=== PATIENT | female | born 1990 | race Caucasian/White ===

== ENCOUNTER 2016-08-27 12:28 | Emergency (ER) | payer OTHER ==
[~2016-08-27] VITALS: Ht 157.5 cm; Wt 63.5 kg
[2016-08-27 12:29] VITALS: Ht 157.5 cm; Wt 63.5 kg
[2016-08-27] MEDS ORDERED: IBUP-1542 PO (13:12)
--- NOTE | 2016-08-27 14:42 | ERD ---
ER Documentation Chief Complaint Date/Time DATE: 08/27/16 TIME: 14:38 Chief Complaint Complains of left ear pain x 3 days HPI 25-year-old female complaining of a painful lump behind her left ear 3 days. Pain is constant, pain shoots up and down from the lump. Denies fever or chills. Denies cough or rhinorrhea. Denies headache. ROS All systems reviewed and are negative except as per history of present illness. Medications Home Meds Active Scripts Ibuprofen* (Motrin*) 600 Mg Tab, 600 MG PO Q6H Y for PAIN AND OR ELEVATED TEMP, #30 TAB Prov:ILIR SORENSEN Eda [employer] 08/27/16 Allergies Allergies: Coded Allergies: No Known Allergy (Verified , 08/27/16) PMhx/Soc History of Surgery: Yes (C SECTION) Anesthesia Reaction: No Hx Neurological Disorder: No Hx Respiratory Disorders: No Hx Cardiac Disorders: No Hx Psychiatric Problems: No Hx Miscellaneous Medical Probl: No Hx Alcohol Use: Yes (OCCASSIONAL) Hx Substance Use: No Hx Tobacco Use: No Smoking Status: Unknown if ever smoked Physical Exam Vitals Vital Signs Date Time Temp Pulse Resp B/P Pulse Ox O2 Delivery O2 Flow Rate FiO2 08/27/16 12:29 97.0 94 20 140/64 100 Physical Exam General: Well-developed, well-nourished, conscious and coherent, in no distress Skin: Warm and dry without rash, good texture and turgor Head: Normocephalic without evidence of trauma Eyes: Sclera and conjunctivae normal; pupils equal, round, and reactive to light; extraocular movements are intact Ears: Canals are patent. Tympanic membranes are clear. A small postauricular lymph node noted on the left. Nose/Face: Without rhinorrhea Mouth/throat: Mucous membranes are moist. Posterior pharynx clear without erythema or exudates Neck: Supple without meningismus or adenopathy. Carotids are equal. Trachea midline. No bruits or JVD Chest: Normal AP diameter. Good expansion without retractions. Nontender. Lungs are clear to auscultate bilaterally with good tidal volume Heart: Regular rate and rhythm. No murmur, rub, or gallops heard Abdomen: Soft and nontender without masses, guarding, or rebound. Bowel sounds are active. No hepatosplenomegaly Neuro: Alert and oriented 4, GCS 15. Cranial nerves grossly intact. Motor and sensory exams nonfocal. Moves all extremities. Speech clear. Gait normal Procedures/MDM Well-appearing 25-year-old female presented to ED with a singular post auricular lymph nodes on the left. Likely lymphadenopathy is due to either a viral infection, or allergen. Low suspicion of lymphoma or prostatitis. Patient reassured that this is not life-threatening. Patient appears well, stable for discharge and outpatient management. Medical decision making shared with patient and family. Education provided to patient and family. Patient and family expressed understanding of the plan. Medications on discharge: Ibuprofen. Follow-up: Primary care provider in 2-3 days or return to ED if worse. Departure Diagnosis: Primary Impression: Posterior auricular lymphadenopathy Condition: Good Patient Instructions: When Your Child Has Swollen Lymph Nodes Additional Instructions: Call your primary care doctor TOMORROW for an appointment during the next 2-3 days.See the doctor sooner or return here if your condition worsens before your appointment time. ILIR SORENSEN NP Aug 27, 2016 14:41
== END 2016-08-27 13:32 | disposition home or self-care (01) ==
LOC: FTE 12:28
DX: R59.1 Generalized enlarged lymph nodes (principal)
CPT/HCPCS: 99283